=== PATIENT | male | born 1940 | race Caucasian/White ===

== ENCOUNTER 2023-10-30 08:19 | Emergency (ER) | payer MEDICARE, OTHER, SELFPAY ==
--- NOTE | ~2023-10-30 | CT_ITS ---
Non-contrast Head CT History: Status post fall Technique: Axial non-contrast imaging of the brain was performed. Dose reduction technique was used on this scan by utilizing automated exposure control and iterative reconstruction technique. The dose -length product (DLP) was 681.00 mGy-cm. Findings: There is no evidence of intracranial hemorrhage, mass lesion, or acute infarct. Focal coar se calcification noted in the right centrum semiovale. The ventricles and subarachnoid spaces are no rmal in size. The calvarium appears normal. The visualized paranasal sinuses and mastoid air cells are clear. There is soft tissue swelling/hematoma in the left frontal scalp. Impression: No acute intracranial abnormality seen. Soft tissue swelling/hematoma at the left frontal scalp. Reviewed, dictated and finalized at [facility]. Impression: No acute intracranial abnormality seen. Soft tissue swelling/hematoma at the left frontal scalp.
--- NOTE | ~2023-10-30 | CT_ITS ---
EXAMINATION: CT cervical spine wo con DATE: 10/30/2023 09:07 INDICATION: Fall with left-sided head injury TECHNIQUE: Computed tomography (CT) of the cervical spine was performed without intravenous contrast. Automated exposure control and iterative reconstruction technique were employed. The dose-length pro duct was 292.75 mGy-cm. COMPARISON: None FINDINGS: 7 degrees cervicothoracic dextrocurvature. Sagittal alignment is normal. Vertebral body heights are n ormal. No fracture. 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 Moderate disc height loss at C4-C5 and mild disc height loss at the remaining cervical and upper thoracic levels. Severe osteoarthritis at the atlantoaxial articulation. There is multileve l severe left-sided cervical and bilateral upper thoracic facet osteoarthritis with solid osseous fus ion across the left-sided facet and uncovertebral joints from C2 through C5. There is moderate right- sided cervical facet osteoarthritis with additional fusion across the left C2-C3 facet joint and deve loping fusion at the margins of the C3-C4 and C4-C5 facet joints. Posterior endplate osteophytes cont ributing to mild central canal stenosis at C5-C6 and C6-C7. There is multilevel mild neural foraminal stenosis throughout the cervical spine most prominent bilaterally also at C5-C6 and C6-C7. 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 A few small likely benign nodules in the right thyroid lobe the largest measur ing 1 cm. Mild emphysema the apices of the lungs. IMPRESSION: 1. Severe cervical spondylosis. No acute osseous abnormality. Reviewed, dictated and finalized at location [facility].
--- NOTE | ~2023-10-30 | XR_ITS ---
Left Hand Technique: PA, oblique, and lateral views were obtained. Clinical History: Status post fall Findings: There is a probable oblique, nondisplaced fracture the distal second metacarpal neck. No ot her fracture or dislocation seen. There is mild degenerative change at the first CMC joint and trisca phe joint. Soft tissues are unremarkable. Impression: Probable oblique, nondisplaced fracture of the distal second metacarpal neck. Degenerative change, as above. Reviewed, dictated and finalized at location . Impression: Probable oblique, nondisplaced fracture of the distal second metacarpal neck. Degenerative change, as above.
[2023-10-30 08:30] VITALS: BP 115/80; PULSE 83; RESP 20; TEMP 36.9; O2SAT 97
--- NOTE | 2023-10-30 08:34 | ED.FALL ---
HPI - Fall General Chief Complaint: Fall Stated Complaint: fall Time Seen by Provider: 10/30/23 08:30 History of Present Illness HPI Narrative: Patient was running labs this morning and thinks he overextended himself, he had started leaning forward on the last and over balanced falling on to his knees, left hand, face. No loss of consciousness, nausea vomiting. Only pain is really to his left hand. Is on blood thinners. Never had any chest pain, shortness of breath. Related Data Allergies Allergy/AdvReac Type Severity Reaction Status Date / Time naproxen Allergy Severe unknown Verified 10/30/23 08:36 Review of Systems Review of Systems: All systems reviewed & are unremarkable except as noted in HPI and below [facility] Family History Family History (Updated 07/07/17 @ 07:53 by DOCTOR UNKNOWN) Mother Patient's mother is , Onset Age: 85 Father Malignant neoplasm of prostate Family history of congestive heart failure, Onset Age: 82 Sibling Family history of malignant neoplasm of urinary bladder Other Family history of cardiovascular disease Social History Social History Smoking status: Former smoker Smoking end date: 02/24/1962 Alcohol intake: current Exam Narrative: EXAMINATION OF ORGAN SYSTEMS/BODY AREAS: Constitutional: Vital signs per nursing GENERAL:[No acute distress, non-toxic appearing.] HEAD: Slight abrasion to top of head EYES: EOMI, conjunctiva normal ENT: Hearing grossly intact LUNGS: Nonlabored breathing. HEART: [Regular rate and rhythm] ABD: [Soft], [nontender to palpation] EXT: Normal range of motion, some swelling and tenderness to left hand around the base of the 2nd digit and thumb SKIN: Slight bruising as above, small abrasion to top of head NEURO: [Alert and oriented x 3. No gross focal sensory or strength deficits.] PSYCH: Normal affect Course Vital Signs Vital signs: Vital Signs Temperature 98.4 F 10/30/23 08:30 Pulse Rate 83 10/30/23 08:30 Respiratory Rate 20 10/30/23 08:30 Blood Pressure 115/80 10/30/23 08:30 Pulse Oximetry 97 10/30/23 08:30 Oxygen Delivery Room Air 10/30/23 08:30 Temperature 97.1 F L 10/30/23 11:24 Pulse Rate 66 10/30/23 11:24 Respiratory Rate 20 09/05/24 11:24 Blood Pressure 118/79 10/30/23 11:24 Pulse Oximetry 98 10/30/23 11:24 Oxygen Delivery Room Air 10/30/23 08:30 Procedures Orthopedic Splinting/Casting Injury #1: Splinting/Casting Date: 10/30/23 Side: left Upper Extremity Injury Location: hand and finger Upper Extremity Immobilizer: finger (other) (Finger with radial gutter splint) Splint: customized in ED Pre-Procedure Neuro Vascular Exam: normal Post-Procedure Neuro Vascular Exam: normal MDM - Fall MDM Narrative Medical decision making narrative: Patient presents here after a fall when he overbalanced when he was running multiple laps, fell onto his left wrist and head, denied ever being lightheaded, no chest pain or shortness of breath, imaging obtained here just shows possible 2nd metacarpal neck fracture, this is splinted. Tetanus shot is up-to-date. Denies any other complaints, he is given strict return precautions and follow-up instructions to PCP Discharge Plan Discharge Clinical Impression: Fracture of hand, Fall, Traumatic hematoma of forehead Patient Disposition: Home, Self-Care Condition: Stable Instructions: Antibiotic Form, Hand Fracture (ED), Contusion in Adults (ED), Abrasion (ED) Additional Instructions: Please follow up with your doctor and the hand surgeon; you can always return for any further issues. Keep your hand in the splint but come back if you notice any worsening pain, any numbness/weakness/coldness to the fingers, or anything else concerning. Prescriptions: New acetaminophen [Tylenol Extra Strength] 500 mg tablet 1,000 mg PO Q6H PRN (Reason: pain) Qty:
[2023-10-30 09:35] VITALS: BP 127/83; PULSE 98; RESP 18; TEMP 36.6; O2SAT 99
[2023-10-30 11:24] VITALS: BP 118/79; PULSE 66; RESP 20; TEMP 36.2; O2SAT 98
== END 2023-10-30 11:26 | disposition home or self-care (01) ==
PROVIDERS: Emergency Provider Emergency Medicine
DX: S62.92XA Unspecified fracture of left hand, initial encounter for closed fracture (principal); S00.83XA Contusion of other part of head, initial encounter; W01.0XXA Fall on same level from slipping, tripping and stumbling without subsequent striking against object, initial encounter
CPT/HCPCS: 29125; 70450; 72125; 73130; 99284

== ENCOUNTER 2024-06-06 13:41 | Emergency (ER) | payer MEDICARE, SELFPAY ==
--- NOTE | ~2024-06-06 | CT_ITS ---
EXAMINATION: CT cervical spine wo con DATE: 06/06/2024 14:17 INDICATION: fall TECHNIQUE: Computed tomography (CT) of the cervical spine was performed without intravenous contrast. Automated exposure control and iterative reconstruction technique were employed. The dose-length pro duct was 462.25 mGy-cm. COMPARISON: 10/30/2023. FINDINGS: Vertebral Body Alignment: Intact. Craniocervical and atlantoaxial alignment: Moderate degenerative change. Alignment intact. Osseous structures/fracture: No evidence of a lytic or blastic process in the visualized spine. No e vidence of acute fracture. Multilevel facet fusions. Cervical soft tissues: The paraspinal soft tissues planes are maintained. Status post left thyroidect piedad. Subcentimeter right thyroid nodules. Emphysematous change. Degenerative changes: Degenerative changes, without severe neural foraminal or central canal narrowin g. IMPRESSION: No acute fracture or traumatic malalignment in the cervical spine. Reviewed, dictated and finalized at location K.
--- NOTE | ~2024-06-06 | CT_ITS ---
EXAMINATION: CT brain wo con DATE: 06/06/2024 14:17 INDICATION: fall . TECHNIQUE: Computed tomography (CT) of the head was performed without intravenous contrast. The mA wa s adjusted according to patient size. Iterative reconstruction technique was employed. The dose-lengt h product was 605.33 mGy-cm. COMPARISON: 10/30/2023. FINDINGS: No acute intracranial hemorrhage or extra-axial fluid collection. No hydrocephalus, mass, or herniation. No acute ischemic infarct. Unremarkable dural venous sinus attenuation. No acute osseous abnormality. Small focus of left frontal scalp swelling Trace left mastoid fluid, mild scattered paranasal sinus mucosal thickening. Moderate atrophy and chronic white matter change. Atherosclerotic intracranial calcification. Stable calcification in the right centrum semiovale white matter. IMPRESSION: No acute intracranial process. Reviewed, dictated and finalized at location K.
--- OUTSIDE RECORDS SUMMARY | 2024-06-06 13:44 | XMS_ITS | Referral Summary ---
Author Organization [facility] Address [address] [place] [address] Care Team Providers Care Programmer Name Role Phone Hallie Urias MD Primary Care Provider [phone] Franco Leigh MD Unavailable [phone] Encounters Date Type Department Care Team Description 04/07/2024 8:30 AM SCALP SPECIALIST - 04/07/2024 11:59 PM SCALP SPECIALIST Hospital Encounter [facility] [address] [place] [address] Calculus of ureter Discharge Disposition: Discharge to home or self care 03/18/2024 9:45 AM SCALP SPECIALIST - 03/18/2024 11:15 AM SCALP SPECIALIST Surgery [facility] Operating Room [address] [place] [address] Franco Leigh MD Right ureteroscopy, laser lithotripsy, stone extraction, right stent placement 03/18/2024 9:09 AM SCALP SPECIALIST Anesthesia Event [facility] [address] [place] [address] Alfred Jay MD 03/18/2024 8:00 AM SCALP SPECIALIST - 03/18/2024 11:52 AM SCALP SPECIALIST Hospital Encounter [facility] Operating Room [address] [place] [address] Franco Leigh MD Calculus of ureter (Primary Dx) Discharge Disposition: Discharge to home or self care from Last 3 Months Allergies Active Allergy Reactions Criticality Noted Date Comments Naproxen Flushing (skin) Low 08/25/2023 Medications tamsulosin (FLOMAX) 0.4 mg extended release capsuleIndicatio ns:benign prostatic hyperplasia with lower urinary tract sx Take 1 capsule (0.4 mg total) by mouth nightly 01/27/20 Active rivaroxaban (XARELTO) 20 mg tabletIndication s:atrial fibrillation Take 1 tablet (20 mg total) by mouth daily with breakfast Active multivitamin with minerals tabletIndication s:Vitamin Deficiency Prevention Take 1 tablet by mouth daily Active acidophilus-pect in, citrus 100 million cell-10 mg capsule Take 1 capsule by mouth daily Active omega-3 fatty acids-fish oil 300-1,000 mg capsuleIndicatio ns:hypertriglyce ridemia Take 1 capsule (1 g total) by mouth daily Active dilTIAZem CD/XR/XT (CARDIZEM CD,DILACOR XR) 120 mg 24 hr capsuleIndicatio ns:Ventricular Rate Control in Atrial Fibrillation Take 1 capsule (120 mg total) by mouth daily Active INVESTIGATIONAL MEDICATION - FOR HISTORICAL USE ONLY Take 1 tablet by mouth daily INV-CIRB #20-18 (PREVENTABLE) Investigational study Atorvastatin 40 vs placebo Active amino acids capsule Take by mouth Active Active Problems Problem Noted Date Diagnosed Date Calculus of ureter 03/03/2024 Renal abscess, left 11/08/2023 Atrial fibrillation with rapid ventricular respo nse 11/08/2023 Episode of dizziness 11/08/2023 Acute cystitis with hematuria 11/08/2023 Acute pyelitis 11/08/2023 Abnormal serum creatinine level 11/08/2023 Essential hypertension 11/08/2023 Dyslipidemia 11/08/2023 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 Hydronephrosis of left kidney 08/08/2023 Gross hematuria 08/08/2023 Rotator cuff strain, right, initial encounter Pyelonephritis 06/26/2023 UTI (urinary tract infection) 06/26/2023 Social History Tobacco Use Types Packs/Day Years Used Date Smoking Tobacco: Never Smokeless Tobacco: Never Tobacco Cessation:Counseling Given: Not Answered Alcohol Use Standard Drinks/Week Comments Never 0 (1 standard drink = 0.6 oz pur e alcohol) OASIS D0700: Social Isolation Answer Da te Recorded Frequency of experiencing loneliness or isolatio n Never 11/16/2023 AHC Utilities Answer Date Recorded In the past 12 months has th e electric, gas, oil, or water company threatened to shut off services in your home? No 11/10/2023 Social Connection and Isolat ion Panel [NHANES] Answer Date Recorded In a typical week, how many times do you talk on the phone with family, friends, or neighbors? More than three times a week 11/10/2023 How often do you get togethe r with friends or relatives? More than three times a week 11/10/2023 How often do you attend chur ch or jainism services? More than 4 times per year 11/10/2023 Do you belong to any clubs o r organizations such as yarsanism groups, unions, fraternal or athletic groups, or school groups? No 11/10/2023 How often do you attend meet ings of the clubs or organizations you belong to? Never 11/10/2023 Are you , , di vorced, , never , or living with a partner? 11/10/2023 AUDIT-C Answer Date Recorded Q1: How often do you have a drink containing alc ohol? Monthly or less 03/10/2024 Q2: How many drinks containi ng alcohol do you have on a typical day when you are drinking? 1 or 2 03/10/2024 Q3: How often do you have si x or more drinks on one occasion? Never 03/10/2024 Overall Financial Resource Strain (CARDIA) Answe r Date Recorded How hard is it for you to pa y for the very basics like food, housing, medical care, and heating? Not hard at all 11/10/2023 Hunger Vital Sign Answer Date Recorded Within the past 12 months, y ou worried that your food would run out before you got the money to buy more. Never true 11/10/19 24 Within the past 12 months, t he food you bought just didn't last and you didn't have money to get more. Never true 11/10/2023 PRAPARE - Transportation Answer Date Re corded In the past 12 months, has l ack of transportation kept you from medical appointments or from getting medications? No 10/25 In the past 12 months, has l ack of transportation kept you from meetings, work, or from getting things needed for daily living? No 11/10/2023 Housing Stability Vital Sign Answer Curt e Recorded In the last 12 months, was t here a time when you were not able to pay the mortgage or rent on time? No 06/26/2023 In the last 12 months, how many places have you lived? 1 06/26/2023 In the last 12 months, was t here a time when you did not have a steady place to sleep or slept in a custodial (including now)? No 06/26/2023 Housing Stability Vital Sign Answer Curt e Recorded In the last 12 months, was t here a time when you were not able to pay the mortgage or rent on time? No 11/10/2023 In the past 12 months, how m any times have you moved where you were living? 0 11/10/2023 At any time in the past 12 m [facility], were you homeless or living in a custodial (including now)? No 11/10/2023 Personal Safety Answer Date Recorded Have you ever been in or are you currently in a harmful physical or emotional relationship or is someone making you feel afraid or unsafe? Denies 03/18/2024 Sex and Gender Information Value Date Recorded Sex Assigned at Not on file Legal Sex Male 9:10 PM CDT Gender Identity Not on file Sexual Orientation Not on file Last Filed Vital Signs Vital Sign Reading Time Taken Comments Blood Pressure 127/87 03/18/2024 11:38 AM SCALP SPECIALIST Pulse 93 03/18/2024 11:38 AM SCALP SPECIALIST Temperature 36.2 C (97.1 F) 03/18/2024 11:38 AM SCALP SPECIALIST Respiratory Rate 18 03/18/2024 11:38 AM SCALP SPECIALIST Oxygen Saturation 93% 03/18/2024 11:38 AM SCALP SPECIALIST Inhaled Oxygen Concentration - - Weight 82.8 kg (182 lb 8.7 oz) 03/18/2024 8:17 A M SCALP SPECIALIST Height 177.8 cm (5' 10 ) 03/18/2024 8:17 AM SCALP SPECIALIST Body Mass Index 26.19 03/18/2024 8:17 AM SCALP SPECIALIST Plan of Treatment Not on file Medical Devices Implanted Type Area Director Independent Device Identifier Shelf Expiration Date Model / Serial / Lot Is That Odd Scientific Debbie Contour 6fr 26cm Large Inner Lumen Low Profile Bladder Iban Taper Latex Free 180-223 - [id number] Implanted:Qty: 1 on 03/18/2024 by Franco Leigh MD at [facility] 11/05/2026 [id number] / / [id number] Procedures Procedure Name Priority Date/Time Associated Diagnosis Comments XR KUB Schedule Routine, Read Routine (OP Routine) 04/07/2024 8:49 AM SCALP SPECIALIST Calculus of ureter SURGICAL PATHOLOGY Routine 03/18/2024 11 :49 AM SCALP SPECIALIST Calculus of ureter FL FLUOROSCOPY < 1 HOUR IP Routine 03/18/2024 11:00 AM SCALP SPECIALIST Calculus of ureter XR ABDOMEN AP 1 VIEW IP Routine 03/18/2024 11:00 AM SCALP SPECIALIST Calculus of ureter STONE ANALYSIS Routine 03/18/2024 9:42 AM SCALP SPECIALIST WY AN ELECTIVE SUPRAGLOTTIC AIRWAY Routine 03/18/2024 9:31 AM SCALP SPECIALIST URETEROSCOPY 03/18/2024 9:09 AM SCALP SPECIALIST Calculus of ureter from Last 3 Months Results * XR Kub (04/07/2024 8:49 AM SCALP SPECIALIST) Anatomical Region Laterality Modality Body, Abdomen N/A Computed Radiogr aphy 04/09/2024 9:15 AM SCALP SPECIALIST Narrative 04/09/2024 9:19 AM SCALP SPECIALIST EXAM DESCRIPTION: XR KUB REASON FOR STUDY: RIGHT URETERAL STONE Right side kidney stone No pain TECHNIQUE: 1 radiographic view of the abdomen. COMPARISON: 03/18/2024 FINDINGS: BOWEL: Nonobstructive gas pattern. SOFT TISSUES: No abnormal calcifications. LINES/TUBES: Right-sided double-J ureteral stent has been removed since the previous study. BONES: No acute osseous abnormality. IMPRESSION: Interval removal of right-sided double-J ureteral stent. THIS IS AN ELECTRONICALLY VERIFIED FINAL REPORT 04/09/2024 9:19 AM - Electronically signed by Carmen Quintanilla M.D. AB: Report ID: [id number] Reading Location: [id number] Procedure Note Carmen Quintanilla MD - 04/09/2024 EXAM DESCRIPTION: XR KUB REASON FOR STUDY: RIGHT URETERAL STONE Right side kidney stone No pain TECHNIQUE: 1 radiographic view of the abdomen. COMPARISON: 03/18/2024 FINDINGS: BOWEL: Nonobstructive gas pattern. SOFT TISSUES: No abnormal calcifications. LINES/TUBES: Right-sided double-J ureteral stent has been removed sincethe previous study. BONES: No acute osseous abnormality. IMPRESSION: Interval removal of right-sided double-J ureteral stent. THIS IS AN ELECTRONICALLY VERIFIED FINAL REPORT 04/09/2024 9:19 AM - Electronically signed by Carmen Quintanilla M.D. AB: Report ID: [id number] Reading Location: [id number] Franco Leigh MD IMG XR PROCEDURES Fi nal Result * Surgical pathology (03/18/2024 11:49 AM SCALP SPECIALIST) Tissue specimen (specimen) (Calculus/calculi /stone, gross and Chemical Analysis) 03/18/2024 9:42 AM SCALP SPECIALIST Narrative PATHOLOGY [facility] ([facility]) - 03/19/2024 11:09 AM SCALP SPECIALIST EPIC results best viewed via link to PDF [facility] Department of Pathology [address] [place], [place] [id number] Note to Patients: This report may contain a detailed description of human tissue sent by a health care provider to the laboratory for pathologic evaluation. The content of this report is essential for diagnosis and may provide important critical findings. This information may be unfamiliar to patients to review without a medical professional present. It is advised that the patient review this report in the presence of a health care provider who can answer questions and explain the details. Final Report Patient Name: APARNA TOMPKINS Address: [address] [place] [address] [address] , [place] [address] Gender: M : 1940 (Age: 84) Service: Surgery Location: [facility] Hospital #: [id number] Patient Type: [facility] Taken: 03/18/2024 Received: 03/18/2024 Accessioned: 03/18/2024 Reported: 03/19/2024 Physician(s):Franco Leigh M.D. Diagnosis: Right ureteral stone, removal (gross only): - Consistent with ureteral stone. - Pending [facility] chemical analysis. Akil Pearson M.D. Report Electronically Reviewed and Signed Out By Akil Pearson M.D. 03/19/2024 11:09:35 Specimen(s) Received: A: Right ureteral stone Clinical History: Calculus of ureter. Right ureteroscopy, laser lithotripsy, stone extraction, right stent placement. Gross Description: The specimen is submitted in a single container labeled MARLIN TOMPKINS and right ureteral stone . It is 5 fragments of chowdhury tissue measuring 2 mm. The specimen is entirely submitted to [facility] for chemical analysis. When the [facility] report has been finalized, it will be available in the laboratory section of [facility]. If [facility] is not available, please call the Department of Pathology at [facility] ([phone]) to obtain a copy of the report. [facility] R.N[facility] P.A./Elvira Ramírez M.D. REPORT IMAGES AND SCANNED DOCUMENTS, IF INCLUDED, ONLY VIEWABLE IN PDF VERSION OF REPORT The performance characteristics of some immunohistochemical stains, fluorescence in-situ hybridization tests and immunophenotyping by flow cytometry cited in this report (if any) were determined by the Surgical Pathology Department at [facility] as part of an ongoing senior software quality engineer program and in compliance with federally mandated regulations drawn from the Clinical Laboratory Improvement Act of 1988 (CLIA '88). Some of these tests rely on the use of analyte specific reagents and are subject to specific labeling requirements by the US Food and Drug Administration. Such diagnostic tests may only be performed in a facility that is certified by the Department of Health and Human Services as a high complexity laboratory under CLIA '88. The FDA has determined that such clearance or approval is not necessary. This test is used for clinical purposes. It should not be regarded as investigational or for research. Nevertheless, federal rules concerning the medical use of analyte specific reagents require that the following disclaimer be attached to the report: This test was developed and its performance characteristics determined by the Surgical Pathology Department [facility]. It has not been cleared or approved by the U. S. Food and Drug Administration. Note for decalcified specimens: This assay has not been validated on decalcified tissues. Results should be interpreted with caution given the possibility of false negativity on decalcified specimens Franco Leigh MD LAB PATHOLOGY ORDERA BLES Final Result Performing Organization Address [facility] Co de Phone Number PATHOLOGY [facility] ([facility]) [address] [place] [address] * FL Fluoroscopy < 1 Hour (03/18/2024 11:00 AM SCALP SPECIALIST) Narrative [facility]ACS[facility] - 03/18/2024 11:46 AM SCALP SPECIALIST The images from this study are not interpreted by Radiology. Please refer to the physician's procedure / OR operative note. Franco Leigh MD IMG FLUOROSCOPY PROC EDURES Final Result Performing Organization Address [facility] de Phone Number [facility] * XR Abdomen 1 View AP (03/18/2024 11:00 AM SCALP SPECIALIST) Anatomical Region Laterality Modality Body, Abdomen N/A Radio Fluoroscop y 03/18/2024 3:55 PM SCALP SPECIALIST Narrative 03/18/2024 3:57 PM SCALP SPECIALIST EXAM DESCRIPTION: XR ABDOMEN AP 1 VIEW REASON FOR STUDY: kidney stone Right stent placement Fluoro time: .2 min Mgy: 3.6 DAP: 202.18 TECHNIQUE: Single radiographic view of the abdomen. COMPARISON: CT abdomen 02/19/2024 FINDINGS: 2 limited fluoroscopic images of the abdomen were submitted demonstrating right nephroureteral stent in appropriate position, terminating distally within the pelvis in the expected position of the urinary bladder. . No acute findings IMPRESSION: Right nephroureteral stent in appropriate position. THIS IS AN ELECTRONICALLY VERIFIED FINAL REPORT 03/18/2024 3:57 PM - Electronically signed by Yolanda Benitez M.D. FT: FT Report ID: [id number] Reading Location: [id number] Procedure Note Yolanda Conklin MD - 03/18/2024 EXAM DESCRIPTION: XR ABDOMEN AP 1 VIEW REASON FOR STUDY: kidney stone Right stent placement Fluoro time: .2 min Mgy: 3.6 DAP: 202.18 TECHNIQUE: Single radiographic view of the abdomen. COMPARISON: CT abdomen 02/19/2024 FINDINGS: 2 limited fluoroscopic images of the abdomen were submitted demonstrating right nephroureteral stent in appropriate position, terminating distally within the pelvis in the expected position of the urinary bladder. . No acute findings IMPRESSION: Right nephroureteral stent in appropriate position. THIS IS AN ELECTRONICALLY VERIFIED FINAL REPORT 03/18/2024 3:57 PM - Electronically signed by Yolanda Benitez M.D. FT: FT Report ID: [id number] Reading Location: [id number] Franco Leigh MD IMG XR PROCEDURES Fi nal Result * Stone analysis (03/18/2024 9:42 AM SCALP SPECIALIST) Pathologist [facility] Stone analysis Not Reported [facility] Comment:Testing performed by : [facility], [address] [place] [address]., [address] Source, Kid Stone Right Ureter [facility] (VIVIAN) Comment:Testing performed by : [facility], [address] [place] [address], [place]., [address] Interp, Kid stone analysis See Footnote [facility]ENNY GIRARD (VIVIAN) Comment: RESULT: 100% Calcium oxalate monohydrate. Testing performed by: [address] [address] COMMENT See Footnote KENNY GIRARD (VIVIAN) Comment: For stones containing calcium oxalate, calcium phosphate, and/or uric acid, a 24 hr urinary supersaturation test may help detect underlying risk factors for this type of stone formation and provide guidance for a stone prevention strategy. ADDITIONAL INFORMATION This test was developed and its performance characteristics determined by [facility] in a manner consistent with CLIA requirements. This test has not been cleared or approved by the U.S. Food and Drug Administration. Test Performed by: [facility] - [facility] [address] [place] [address] Chair Trimmer: Norman Bautista Ph.D.; CLIA# [id number] Testing performed by: [facility], [address] [place] [address], [address] Stone 03/18/2024 9:42 AM SCALP SPECIALIST 03/22/2024 2:17 PM SCALP SPECIALIST Narrative [facility] ([facility]) - 03/25/2024 11:09 PM SCALP SPECIALIST right ureteral stone Franco Leigh MD LAB URINE ORDERABLES Final Result Performing Organization Address City/State/[facility] Co de Phone Number [facility] (ECLECTIC) [facility] Department [place] [address] [facility] * [place] AN ELECTIVE SUPRAGLOTTIC AIRWAY (03/18/2024 9:31 AM SCALP SPECIALIST) Narrative Samantha Hutson CRNA - 03/18/2024 9:31 AM SCALP SPECIALIST Samantha Hutson CRNA 03/18/2024 9:32 AM Airway Patient location: OR Urgency: elective Indications for airway management: anesthesia Difficult airway: no Staff: Placed by: FORENSIC ENGINEER: Samantha Hutson CRNA Emergent airway documentation: Risks and benefits discussed: yes Consent obtained: yes Consent given by: patient Airway prep: Preoxygenated: yes Patient position: sniffing Mask difficulty assessment: 0 - not attempted Spontaneous ventilation during airway: absent Sedation level during airway: GA Final airway details: Final airway type: supraglottic airway Final supraglottic airway: unique SGA size: 5 Number of attempts: 1 Alfred Jay MD ANESTHESIA ORDERABLES Sugar mcmahon Result from Last 3 Months Insurance [place] [employer] [place] [employer]IC[facility] Address: [facility] [address] [place] [address] [place] [employer] [facility] MEDICARE AD[facility]ANT[facility] MEDICARE Address: [facility] [address] [place] [address] Advance Directives For more information, please contact: [phone] Documents on File Type Date Recorded Patient Paradichlorobenzene Machine Operator Expl anation ADVANCE DIRECTIVE 11/17/2023 6:11 PM POWER OF FRAME ALIGNER-MEDICAL * LIMITED - No CPR (Latest Code Status on File) Date Activated Date Inactivated Comments 11/08/2023 6:18 PM 11/14/2023 9:56 PM * Full Code Date Activated Date Inactivated Comments 06/26/2023 3:13 AM 06/29/2023 4:04 PM Care Teams Programmer Relationship Specialty Start Date End Date Hallie Urias MD [address] [place] [address] PCP - General Internal Medicine 06/27/23 [place] [address] [place] [address] Consulting Physician Urology 06/29/23
--- OUTSIDE RECORDS SUMMARY | 2024-06-06 13:44 | XMS_ITS | Data Portability ---
Author Organization [place] - [facility] OFFICE Address [address] [place] [address] Care Team Providers Care Beef [employer]attle [employer] Manager Name Role Phone NILESH LENNON Primary Care Provider Unavail able NILESH LENNON Referring Provider JUANITO Rosas Primary Care Provider [phone] Assessment No assessment recorded. Plan of Treatment Reminders Order Date Submit Date Provider Last Modified By Organization Details Last Modified Time Details Appointments None recorded. Lab None recorded. Referral None recorded. Procedures None recorded. Surgeries None recorded. Imaging electrocar diogram 2017 018 angela Not available 8 14:07:32 Medication Orders diltiazem ER 120 mg capsule,24 hr,extende d release 2018 019 [facility][id number], [address], [place], [id number], 9 13:30:32 Xarelto 20 mg tablet 2018 019 [facility] #[id number], [address], [place], [id number], 9 13:30:31 diltiazem ER 120 mg capsule,24 hr,extende d release 2017 018 [facility] #[id number], [address], [place], [id number], 8 14:07:36 Toprol XL 25 mg tablet,ext ended release 2017 018 [facility] #[id number], [address], [place], [id number], 9 13:25:54 Xarelto 20 mg tablet [address] [facility] #[id number], [address], [place], [id number], 8 14:07:36 Patient TargetsNo targets recorded. Patient Instructions Encounter Date Encounter Id Patient Instructions Last Modified By Organization Details Last Modified Time 02/06/2018 [id number] elevated blood [facility]: [facility] Not available 02/06/2018 14:07:32 04/10/2018 [id number] elevated blood pressure: [facility] Not available 04/10/2018 13:30:27 Reason for Referral None Reported. Results Created Date Observation Date Name Description Value Unit Range Abnormal Flag Note LastModifiedBy Organization Detail LastModifiedTime 02/07/20 18 02/06/2018 sierra estrada am Result EKG (02/06): NSR, I degree AV block, NSST change s Not Available Chandrakant Rodriguez MD [address] [place], [place], [address], 02/06/2018 14:03:10 02/10/20 18 01/27/2018 XR, chest No observ ation record ed. [email or web address] Not Available 02/10 12:41:01 02/10/20 18 01/27/2018 XR, chest No observ ation record ed. [email or web address] Not Available 02/10 12:41:44 02/11/20 18 01/28/2018 , echo ardio gram No observ ation record ed. [email or web address] Not Available 2017 10:18:01 02/11/20 18 02/06/2018 sierra estrada am No observ ation record ed. [email or web address] Not Available 02/11 15:38:37 05/13/19 19 05/04/2018 cheyanne r monit or No observ ation record ed. [email or web address] Not Available 05/12 11:49:11 04/19/20 19 08/05/2014 santos can cardi olite stres s test (PROC ) No observ ation record ed. Not Available 2018 10:01:59 Result Notes None recorded. Problems Name Problem SNOMED Code Status Onset Date Resolution Date Notes Provider Name and Address Organization Details Recorded Time Snoring 70475834 Active 2017 Dayanara Perry [facility], [place] - [facility] 8 12:47:37 Chest pain 84439211 Active 2017 Dayanara [place], [place] - [facility] 8 12:47:46 Bilateral hearing loss 45900415 Active 2017 [facility], [place] - [facility] 8 12:47:56 Tinnitus of left ear 085691730598 6 Active 2017 Dayanara [place] [facility], [place] - [facility] 8 12:48:09 Hypertens ronit disorder 22862474 Active 2017 [facility], [place] - [facility] 8 13:29:33 Benign prostatic hyperplas ia 950319019 Active 2017 [facility], [place] - [facility] 8 13:29:46 Anemia 017602413 Active 2017 [facility] [place], [place] - [facility] 8 13:30:02 Atrial fibrillat ion 89055771 Completed 201702/06/2018 [facility], [place] - [facility] 8 14:03:20 Paroxysma l atrial fibrillat ion 482777616 [facility] [place] [facility] 8 13:33:45 Pulmonary emphysema 75599703 Active 2017 [facility], [place] - [facility] 8 13:39:03 Problem Notes None recorded. Procedures Surgical History Date Name Laterality Status Provider Name and Address Organization Details Recorded Time 1 thyroidectomy completed Dayanara Perry [facility] 02/06/2018 12:46:17 tonsillectomy completed Dayanara Perry [facility] 02/06/2018 12:46:25 Imaging Results Imaging Date Name Status LastModified by Organization Details LastModified Time 01/27/2018 XR, chest completed [email or web address] Information no t available 02/10/2018 12:41:01 01/27/2018 XR, chest completed [email or web address] Information no t available 02/10/2018 12:41:44 01/28/2018 US, echocardiogram completed [email or web address] Inform ation not available 02/10/2018 10:18:01 02/06/2018 electrocardiogram completed [email or web address] Informa tion not available 02/11/2018 15:38:37 05/04/2018 holter monitor completed [email or web address] Informatio n not available 05/12/2018 11:49:11 08/05/2014 lexiscan cardiolite stress test (PROC) completed [email or web address] Information not available 06/16/2018 10:01:59 Procedure Notes None recorded. Medical Equipment None Reported. Allergies Allergen ID Allergen Name Allergen Category Reaction Reaction Severity Criticality Documentation Date Start Date Code Code System Note Provider Name and Address Organization Details Recorded Time 7239 Aleve medicatio n Not available Not available Not available 02/06/2018 24684 1 RxNorm Dayanara Perry [facility] 8 12:58:50 Medications Name Sig Start Date Stop Date Status Note LastModified by Organization Details LastModified Time amiodarone 200 mg tablet bid 02/06 completed Not Available Not Available Not Available peg-electrol yte solution 420 gram oral solution 02/06 completed Not Available Not Available Not Available blood pressure monitor kit active Not Available Not Available Not Available amiodarone 400 mg tablet Take 1 tablet twice a day by oral route. 02/06 completed Not Available Not Available Not Available tamsulosin 0.4 mg capsule qd active Not Available Not Available Not Available diltiazem ER 120 mg capsule,24 hr,extended release qd 2018 active Not Available Not Available Not Avai lable lisinopril 10 mg tablet 02/06 completed Not Available Not Available Not Available losartan 25 mg tablet Take 0.5 tablets every day by oral route. active Not Available Not Available No t Available metoprolol succinate ER 25 mg tablet,exten ded release 24 hr Take 0.5 tablets twice a day by oral route. 04/10 completed Not Available Not Available Not Available metoprolol tartrate 25 mg tablet 0.5 tab bid 02/06 completed Not Available Not Available Not Available DILT-XR 120 mg capsule, extended release active Not Available Not Available Not Available ferrous sulfate bid 32mg 04/10 completed Not Available Not Available Not Available Vitamin D3 qd active Not Available Not Av ailable Not Available Probiotic qd active Not Available Not [place] ilable Not Available Xarelto 20 mg tablet qd active Not Available Not Available No t Available Fish Oil 1,000 mg (120 mg-180 mg) capsule Take 1 capsule by oral route. active Not Available Not Available No t Available Fluad 65yr up(PF)45 mcg(15 mcgx3)/0.5 mL intramuscula r syringe prn 04/10 completed Not Available Not Available Not Available Vitals Date Recorded Body height Body mass index (BMI) Body weight Heart rate Oxygen saturation Oxygen saturation in Arterial blood by Pulse oximetry Systolic blood pressure Diastolic blood pressure Provider Name and Address Organization Details Last Updated DateTime 8 177.8 cm 27.5 kg/m2 43025.7 4 g 66 /min 100 % 100 % 142 mm[Hg] 84 mm[Hg] [facility] 8 12:58:40 Date Recorded Body height Systolic blood pressure Diastolic blood pressure Provider Name and Address Organization Details Last Updated DateTime 04/10/2018 177.8 cm 130 mm[Hg] 84 mm[Hg] [facility] 04/10/2018 13:01:02 Date Recorded Body mass index (BMI) Body weight Heart rate Oxygen saturation Oxygen saturation in Arterial blood by Pulse oximetry Provider Name and Address Organization Details Last Updated DateTime 04/10/2018 26.4 kg/m2 88353 g 71 /min 98 % 98 % Henok Self [facility] 9 12:48:51 Social History Question Answer Notes LastModified by Organizat ion Details LastModified Time Tobacco Smoking Status Former Smoker Quit 1963 Not Available [email or web address] 12/28/2019 03:30:41 Do You Have An Advance Directive? No [id number] Information not available 12/28/2019 What Is Your Level Of Alcohol Consumption? Occasional [id number] Information not available 12/28/2019 What Is Your Level Of Caffeine Consumption? None [id number] Information not available 12/28/2019 How Much Tobacco Do You Chew? None [id number] Information not available 12/28/2019 What Type Of Diet Are You Following? REGULAR [id number] Information not available 12/28/2019 Which Illicit Or Recreational Drugs Have You Used? No [id number] Information not available 12/28/2019 What Is Your Occupation? Retired [id number] Information not available 12/28/2019 Live Alone Or With Others? With Others [email or web address] Information not available 02/06/2018 Marital Status Informatio n not available 02/06/2018 What Was The Date Of Your Most Recent Tobacco Screening? 02/06/2018 [id number] Information not available 12/28/2019 How Many Children Do You Have? 3 [id number] Information not available 12/28/2019 How Much Tobacco Do You Smoke? No [id number] Information not available 12/28/2019 General Stress Level Medium Information not available 02/06/2018 How Many Years Have You Smoked Tobacco? 15 [id number] Information not available 12/28/2019 Sex: Unknown Functional Status Question Answer Note LastModified by Organizat ion Details LastModified Time What is your exercise level? Occasional [id number] Information not available 12/28/2019 Mental Status None recorded. Family History Nothing Reported. Medical History Condition Response Anemia Y Hypertension Y Past Encounters Encounter ID Performer Location Encounter Start Date Encounter Closed Date Diagnosis/Indication Diagnosis SNOMED-CT Code Diagnosis ICD10 Code Diagnosis Note [id number] Jourdan Terry Office [address] [place] [address] 02/06/2018 11:45:00 02/06/2018 14:02:15 Paroxysmal atrial fibrillation 959041122 I48.0 Discussed diagnosis of {{paroxysm al atrial fibrillati on# atrial fibrillati on atrial flutter}}, including pathophysi ology and prognosis. Discussed importance of controllin g blood pressure, exercising regularly, and minimizing alcohol, caffeine, and decongesta nts. Advised patient to seek medical attention for palpitatio ns, chest pain, dizziness or syncope, shortness of breath, or any other new or concerning symptoms.{ {No need for anticoagul ation at this time. The patient needs anticoagul ation.*}} Patient is to be on {{ warfari n with INR monitored for appropriat e dosing adjustment s, Xarelto, * Eliquis, Savaysa, Pradaxa, }} and for rate control they will need {{no other medication , beta-bloc ker, beta-bloc ker + antiarrhyt hmic, * calcium channel myles, calcium channel myles + antiarrhyt hmic, antiarrhy thmic, }}{{ digox in, }}and patient was advised to take medication as prescribed . Fall precaution s reviewed. Stroke and bleeding risks reviewed with patient. Holterwill stop Amiodarone . Hypertensive disorder 38 893076 I10 Patient's blood pressure is {{well-con trolled* n ot well-contr olled}} on present medical therapy. Patient is {{tolerati ng, without difficulty ,* having side effects with}} the current medication s. I have {{not made* made the following} } changes to the current regimen. {{ Patient is advised to maintain a blood pressure diary.*}} Cont low Na diet. BP machine [id number] Jourdan Terry Office [address] [place] [address] 04/10/2018 12:35:00 04/10/2018 13:25:58 Paroxysmal atrial fibrillation 397666825 I48.0 Discussed diagnosis of {{paroxysm al atrial fibrillati on# atrial fibrillati on atrial flutter}}, including pathophysi ology and prognosis. Discussed importance of controllin g blood pressure, exercising regularly, and minimizing alcohol, caffeine, and decongesta nts. Advised patient to seek medical attention for palpitatio ns, chest pain, dizziness or syncope, shortness of breath, or any other new or concerning symptoms.{ {No need for anticoagul ation at this time. The patient needs anticoagul ation.*}} Patient is to be on {{ warfari n with INR monitored for appropriat e dosing adjustment s, Xarelto, * Eliquis, Savaysa, Pradaxa, }} and for rate control they will need {{no other medication , beta-bloc ker, beta-bloc ker + antiarrhyt hmic, calcium channel myles, * calcium channel myles + antiarrhyt hmic, antiarrhy thmic, }}{{ digox in, }}and patient was advised to take medication as prescribed . Fall precaution s reviewed. Stroke and bleeding risks reviewed with patient.. Zio to check for arrhythmia Hypertensive disorder 38 581169 I10 Patient's blood pressure is {{well-con trolled* n ot well-contr olled}} on present medical therapy. Patient is {{tolerati ng, without difficulty ,* having side effects with}} the current medication s. I have {{not made made the following* }} changes to the current regimen stop Toprol , start Cozaar. {{ Patient is advised to maintain a blood pressure diary.*}} Cont low Na diet. BP machine Health Concerns Section Related Observation LastModified by Organization Detai ls LastModified Time None Recorded Concern Status LastModified by Organization Details LastModified Time None Recorded Advance Directives Directive N: Payers Encounter Date Sequence Insurance Name Policy Number Policy Clay Covered Member ID Clay Member ID Guarantor Name 02/06/2018 1 [facility] (MEDICARE REPLACEMENT/A DVANTAGE - HMO) [id number] Aparna Tompkins [id number] Aparna Tompkins 04/10/2018 1 [facility] (MEDICARE REPLACEMENT/A DVANTAGE - HMO) [id number] Aparna Tompkins [id number] Aparna Tompkins Notes Date Note Type Note Provider Name and Address Organization Details Recorded Time 02/06/2018 text/html 77 year-old WM w ith history of paroxysmal AFIB, BPH, HTN, emphysema who presents for scheduled fu after dc from hospital. Pt presented on 01/26/2018 to [facility] where he was diagnosed with AFIB. He had some chest discomfort at that time and his BP was not optimally controlled.Before dc he converted to NSR. Since dc he generally feels fine. States that has some episodes of dizziness after he takes Amiodarone especially in PM. No BP machine Pt had half of thyroid removed 2000. no supplementation. {{No known history of coronary artery disease.* History of coronary artery disease reported.}} {{No history of previous myocardial infarction.* History of previous myocardial infarction reported.}} {{No history of heart failure.* History of heart failure reported.}} {{No known valvular heart disease.* History of valvular heart disease reported.}} {{No known arrhythmia. History of arrhythmia reported.*}} {{Patient reports feeling well overall.* Patient reports not feeling well sometimes.}} {{Patient is active, but is not exercising regularly.* Patient is active, exercising regularly. Patient is not very active, and is not exercising.}} {{No chest pain.* Chest pain reported. Exertional chest pain reported. Non-exertio nal chest pain reported. Chest pain reported which is only sometimes associated with activity.}} {{No arm pain.* Arm pain reported.}} {{No neck pain.* Neck pain reported.}} {{No nausea and vomiting.* Nausea and vomiting reported.}} {{No diaphoresis.* Diaphor esis reported.}} {{No shortness of breath at rest.* Shortness of breath at rest reported.}} {{No dyspnea on exertion.* Dyspnea on exertion reported.}} {{No fatigue.* Fatigue reported.}}{{No orthopnea.* Orthopnea reported.}} {{No PND.* PND reported.}} {{No leg swelling.* Leg swelling reported.}} {{No palpitation.* Palpita tion reported.}} {{No dizziness.* Dizziness reported.}} {{No syncope .* Syncope reported.}} {{No pre-syncope.* Pre-syn cope reported.}} {{No claudication.* Claudi cation reported.}} {{No major bleeding events.* Major bleeding event reported.}} {{No side effects from medications.* Side effects from medications reported.}} {{Complete ROS negative except as stated in the HPI. Complete ROS negative except as stated in the HPI and ROS.*}} Results from this visit, or from the past:EKG (02/06/18): NSR, I degree AV block, NSST changesCHEM (01/27/2018): K 4.4, CR 0.8, CA 8.8LIPIDS (01/27/18): TC 98, TG 34, LDL 42, HDL EKG: Sinus bradycardia (56 bpm). First degree A-V block. NSST changesecho (01/28/2018): Normal LV systolic function. Mild LVH. Trivial TR. PASP 45 mmHg. Mild LAE. Jourdan Mallory [place], [place] - [facility] 02/06/2018 14:08:32 04/10/2018 text/html 77 year-old WM w ith history of paroxysmal AFIB, BPH, HTN, emphysema who presents for scheduled fu. he was last time in our office about 2 months ago. Pt presented on 01/26/2018 to [facility] where he was diagnosed with AFIB. He had some chest discomfort at that time and his BP was not optimally controlled. Before dc he converted to NSR., since then remains asymptomatic. He states that this was first time that he was admitted to hospital overnight. Since dc he generally feels fine. States that has some episodes of dizziness after he takes Amiodarone especially in PM. This medication was dc at last appointment and pts symptoms resolved. He is wondering if anticoagulation could be stopped since he is blood donor. Pt had half of thyroid removed 2000. no supplementation. {{No known history of coronary artery disease.* History of coronary artery disease reported.}} {{No history of previous myocardial infarction.* History of previous myocardial infarction reported.}} {{No history of heart failure.* History of heart failure reported.}} {{No known valvular heart disease.* History of valvular heart disease reported.}} {{No known arrhythmia. History of arrhythmia reported.*}} {{Patient reports feeling well overall.* Patient reports not feeling well sometimes.}} {{Patient is active, but is not exercising regularly.* Patient is active, exercising regularly. Patient is not very active, and is not exercising.}} {{No chest pain.* Chest pain reported. Exertional chest pain reported. Non-exertio nal chest pain reported. Chest pain reported which is only sometimes associated with activity.}} {{No arm pain.* Arm pain reported.}} {{No neck pain.* Neck pain reported.}} {{No nausea and vomiting.* Nausea and vomiting reported.}} {{No diaphoresis.* Diaphor esis reported.}} {{No shortness of breath at rest.* Shortness of breath at rest reported.}} {{No dyspnea on exertion.* Dyspnea on exertion reported.}} {{No fatigue.* Fatigue reported.}}{{No orthopnea.* Orthopnea reported.}} {{No PND.* PND reported.}} {{No leg swelling.* Leg swelling reported.}} {{No palpitation.* Palpita tion reported.}} {{No dizziness.* Dizziness reported.}} {{No syncope .* Syncope reported.}} {{No pre-syncope.* Pre-syn cope reported.}} {{No claudication.* Claudi cation reported.}} {{No major bleeding events.* Major bleeding event reported.}} {{No side effects from medications.* Side effects from medications reported.}} {{Complete ROS negative except as stated in the HPI. Complete ROS negative except as stated in the HPI and ROS.*}} Results from this visit, or from the past:EKG (02/06/18): NSR, I degree AV block, NSST changesCHEM (01/27/2018): K 4.4, CR 0.8, CA 8.8LIPIDS (01/27/18): TC 98, TG 34, LDL 42, HDL EKG: Sinus bradycardia (56 bpm). First degree A-V block. NSST changesecho (01/28/2018): Normal LV systolic function. Mild LVH. Trivial TR. PASP 45 mmHg. Mild LAE. Jourdan lynch [place] - [facility] 04/10/2018 13:31:19
--- OUTSIDE RECORDS SUMMARY | 2024-06-06 13:44 | XMS_ITS | Clinical Summary ---
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 Name Role Phone Hallie Urias MD Primary Care Provider [phone] Franco Leigh MD Unavailable [phone] Allergies Active Allergy Reactions Criticality Noted Date Comments Naproxen Flushing (skin) Low 08/25/2023 Medications tamsulosin (FLOMAX) 0.4 mg extended release capsuleIndicatio ns:benign prostatic hyperplasia with lower urinary tract sx Take 1 capsule (0.4 mg total) by mouth nightly 01/27/20 19 Active rivaroxaban (XARELTO) 20 mg tabletIndication s:atrial [...] Pyelonephritis 06/26/2023 UTI (urinary tract infection) 06/26/2023 Encounters Date Type Department Care Team Description 04/07/2024 8:30 AM SACK FILLER - 04/07/2024 11:59 PM SACK FILLER Hospital Encounter [facility] [address] [place] [address] Calculus of ureter Discharge Disposition: Discharge to home or self care 03/18/2024 9:45 AM SACK FILLER - 03/18/2024 11:15 AM SACK FILLER Surgery [facility] [address] [place] [address] Franco Leigh MD Right ureteroscopy, laser lithotripsy, stone extraction, right stent placement 03/18/2024 9:09 AM SACK FILLER Anesthesia Event [facility] [address] [place] [address] Alfred Jay MD 03/18/2024 8:00 AM SACK FILLER - 03/18/2024 11:52 AM SACK FILLER Hospital Encounter [facility] [address] [place] [address] Franco Leigh MD Calculus of ureter (Primary Dx) Discharge Disposition: Discharge to home or self care from Last 3 Months Surgical History Surgery Date Site/Laterality Comments THYROID SURGERY 11/04/2000 Left TONSILLECTOMY AND ADENOIDECTOMY IMAGE GUIDED DRAINAGE PERITO MELANIE OR RETROPERITONEAL FLUID COLLECTION 11/12/2023 N/A ABSCESS CATHETER INJECTION 11/20/2023 N/A IR PICC LINE PLACEMENT > 5 YEARS 11/26/2023 N/A ABSCESS CATHETER INJECTION 12/04/2023 N/A URETEROSCOPY PROSTATE SURGERY Medical History Medical History Date Comments Atrial fibrillation (HCC) Hypertension Dyslipidemia 11/08/2023 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 Family History Medical History Relation Name Comments Cancer Brother agent orange Brother Heart disease Father Heart disease Mother Relation Name Status Comments Brother Father Mother Social History Tobacco Use Types Packs/Day Years Used Date Smoking Tobacco: Never Smokeless Tobacco: Never Tobacco Cessation:Counseling Given: Not Answered Alcohol Use Standard Drinks/Week Comments Never 0 (1 standard drink = 0.6 oz pur e alcohol) OASIS D0700: Social Isolation Answer Da te Recorded Frequency of experiencing loneliness or isolatio n Never 11/16/[address] [facility] Utilities Answer Date Recorded In the past 12 months has e [employer], gas, oil, or water company threatened to [...] often do you attend chur ch or christian services? More than 4 times per year 11/10/2023 Do you belong to any clubs o r organizations such as cheondoism groups, unions, fraternal or athletic groups, or [...] place to sleep or slept in a residential (including now)? No 06/26/2023 Housing Stability Vital [...] time in the past 12 m [facility], were you homeless or living in a residential (including now)? No 11/10/2023 Personal Safety Answer [...] on file Sexual Orientation Not on file Obstetrics History Last Filed Vital Signs Vital Sign Reading Time Taken Comments Blood Pressure 127/87 03/18/2024 11:38 AM SACK FILLER Pulse 93 03/18/2024 11:38 AM SACK FILLER Temperature 36.2 C (97.1 F) 03/18/2024 11:38 AM SACK FILLER Respiratory Rate 18 03/18/2024 11:38 AM SACK FILLER Oxygen Saturation 93% 03/18/2024 11:38 AM SACK FILLER Inhaled Oxygen Concentration - - Weight 82.8 kg (182 lb 8.7 oz) 03/18/2024 8:17 A M SACK FILLER Height 177.8 cm (5' 10 ) 03/18/2024 8:17 AM SACK FILLER Body Mass Index 26.19 03/18/2024 8:17 AM SACK FILLER Plan of Treatment Health Maintenance Due Date Last Done Comments Depression Screening 1940 Hepatitis B Screening 02/13/1958 Well Visit 65+ 02/13/2005 Influenza Vaccine (Season Ended) 2024 12/03/2022, 11/15/2022, 12/14/2021, Additional history exists Fall Risk Assessment 03/03/2025 03/03/2024, 12/04/19 24 DTaP/Tdap/Td Vaccine (2 - Td or Tdap) 05/26/2028 05/26/2018 Pneumococcal vaccine 65+ Completed 08/07/2020, 05/27 Zoster Vaccine Completed 11/07/2020, 07/25, 02/12/2013 Medical Devices Implanted Type Area Hoop Machine Operator Device Identifier Shelf Expiration Date Model / Serial / Lot [id number] Contour 6fr 26cm Large Inner Lumen Low Profile Bladder Iban Taper Latex Free 180-223 - [id number] Implanted:Qty: 1 on 03/18/2024 by Franco Leigh MD at [facility] [employer] Debbie 11/05/2026 [id number] / / [id number] Procedures Procedure Name Priority Date/Time Associated Diagnosis Comments XR KUB Schedule Routine, Read Routine (OP Routine) 04/07/2024 8:49 AM SACK FILLER Calculus of ureter SURGICAL PATHOLOGY Routine 03/18/2024 11 :49 AM SACK FILLER Calculus of ureter FL FLUOROSCOPY < 1 HOUR IP Routine 03/18/2024 11:00 AM SACK FILLER Calculus of ureter XR ABDOMEN AP 1 VIEW IP Routine 03/18/2024 11:00 AM SACK FILLER Calculus of ureter STONE ANALYSIS Routine 03/18/2024 9:42 AM SACK FILLER ID AN ELECTIVE SUPRAGLOTTIC AIRWAY Routine 03/18/2024 9:31 AM SACK FILLER URETEROSCOPY 03/18/2024 9:09 AM SACK FILLER Calculus of ureter from Last 3 Months Results * XR Kub (04/07/2024 8:49 AM SACK FILLER) Anatomical Region Laterality Modality Body, Abdomen N/A Computed Radiogr aphy 04/09/2024 9:15 AM SACK FILLER Narrative 04/09/2024 9:19 AM SACK FILLER EXAM DESCRIPTION: XR KUB REASON FOR STUDY: [...] Electronically signed by Carmen Quintanilla M.D. AB: AB Report ID: [id number] Reading Location: [id number] Procedure Note Carmen Quintanilla MD - 04/09/2024 [...] Electronically signed by Carmen Quintanilla M.D. AB: AB Report ID: [id number] Reading Location: [id number] Franco Leigh MD IMG XR PROCEDURES Fi nal Result * Surgical pathology (03/18/2024 11:49 AM SACK FILLER) Tissue specimen (specimen) (Calculus/calculi /stone, gross and Chemical Analysis) 03/18/2024 9:42 AM SACK FILLER Narrative PATHOLOGY [facility] - 03/19/2024 11:09 AM SACK FILLER EPIC results best viewed via link to PDF [facility] Department of Pathology [address] [place] [address] Note to Patients: This report may contain [...] Final Report Patient Name: APARNA TOMPKINS Address: [address] [place] [address], [place] [address] Gender: M : 1940 (Age: 84) Service: Surgery Location: [facility] Hospital #: [id number] Patient Type: [facility] Taken: 03/18/2024 Received: 03/18/2024 Accessioned: 03/18/2024 Reported: 03/19/2024 Physician(s):Franco Leigh M.D. Diagnosis: Right ureteral stone, removal (gross only): - Consistent with ureteral stone. - Pending [facility] chemical analysis. Akil Pearson M.D. Report Electronically [...] mm. The specimen is entirely submitted to [facility] for chemical analysis. When the [facility] report has been finalized, it will be available in the laboratory section of [facility]. If [facility] is not available, please call the Department of Pathology at [facility] ([phone]) to obtain a copy of the report. Casa Uriarte R.N., P.A./Elvira Ramírez M.D. REPORT IMAGES AND SCANNED DOCUMENTS, IF INCLUDED, ONLY VIEWABLE IN PDF VERSION OF REPORT The performance characteristics of some immunohistochemical stains, fluorescence in-situ hybridization tests and immunophenotyping by flow cytometry cited in this report (if any) were determined by the Surgical Pathology Department at [facility] as part of an ongoing quality control assistant program and in compliance with federally mandated [...] characteristics determined by the Surgical Pathology Department [facility]. It has not been cleared or approved by the U. S. Food and Drug Administration. Note for decalcified specimens: This assay has not been validated on decalcified tissues. Results should be interpreted with caution given the possibility of false negativity on decalcified specimens Franco Leigh MD LAB PATHOLOGY ORDERA BLES Final Result PATHOLOGY [facility] ([facility]) [address] [place] [address] * [place] Fluoroscopy < 1 Hour (03/18/2024 11:00 AM SACK FILLER) Narrative [facility] - 03/18/2024 11:46 AM SACK FILLER The images from this study are not interpreted by Radiology. Please refer to the physician's procedure / OR operative note. Franco Leigh MD IM FLUOROSCOPY PROC EDURES Final Result [facility] * XR Abdomen 1 View AP (03/18/2024 11:00 AM SACK FILLER) Anatomical Region Laterality Modality Body, Abdomen N/A Radio Fluoroscop y 03/18/2024 3:55 PM SACK FILLER Narrative 03/18/2024 3:57 PM SACK FILLER EXAM DESCRIPTION: XR ABDOMEN AP 1 VIEW [...] Yolanda Benitez M.D. FT: FT Report ID: [id number] Reading Location: [id number] Procedure Note Yolanda Conklin MD - 03/18/2024 EXAM DESCRIPTION: XR ABDOMEN AP 1 VIEW REASON FOR STUDY: kidney stone Right stent placement Fluoro time: .2 min Mgy: 3.6 DAP: .18 TECHNIQUE: Single radiographic view of the abdomen. [...] Yolanda Benitez M.D. FT: FT Report ID: [id number] Reading Location: [id number] Franco Leigh MD IMG XR PROCEDURES Fi nal Result * Stone analysis (03/18/2024 9:42 AM SACK FILLER) Pathologist [facility] Stone analysis Not Reported [facility] Comment:Testing performed by : [facility], [address] [place] [address], [id number] Source, Kid Stone Right Ureter [facility] ([facility]) Comment:Testing performed by : [facility], [address] [place] [address]., [address] Interp, Kid stone analysis See Footnote [facility] ([facility]) Comment: RESULT: 100% Calcium oxalate monohydrate. Testing performed by: [facility], [address] [place] [address], [address] COMMENT See Footnote [facility] ([facility]) Comment: For stones containing calcium oxalate, calcium phosphate, and/or uric acid, a 24 hr urinary supersaturation test may help detect underlying risk factors for this type of stone formation and provide guidance for a stone prevention strategy. ADDITIONAL INFORMATION This test was developed and its performance characteristics determined by [facility] in a manner consistent with CLIA requirements. This test has not been cleared or approved by the U.S. Food and Drug Administration. Test Performed by: [facility] [place] [address] Cut Off Saw Tender Metal: Norman Bautista Ph.D.; CLIA# [id number] Testing performed by: [address], [address] Stone 03/18/2024 9:42 AM SACK FILLER 03/22/2024 2:17 PM SACK FILLER Narrative [facility] - 03/25/2024 11:09 PM SACK FILLER right ureteral stone us Franco Leigh MD LAB URINE ORDERABLES Final Result [facility] ([place]) 1 [facility] [place] [address] [place] [facility] * ID AN ELECTIVE SUPRAGLOTTIC AIRWAY (03/18/2024 9:31 AM SACK FILLER) Narrative Samantha Hutson CRNA - 03/18/2024 9:31 AM SACK FILLER Samantha Hutson CRNA 03/18/2024 9:32 AM Airway Patient location: OR Urgency: elective Indications for airway management: anesthesia Difficult airway: no Staff: Placed by: VENTURE CAPITALIST: Samantha Hutson CRNA Emergent airway documentation: Risks and benefits discussed: yes Consent obtained: yes Consent given by: patient Airway prep: Preoxygenated: yes Patient position: sniffing Mask difficulty assessment: 0 - not attempted Spontaneous ventilation during airway: absent Sedation level during airway: GA Final airway details: Final airway type: supraglottic airway Final supraglottic airway: unique SGA size: 5 Number of attempts: 1 us Alfred Jay MD ANESTHESIA ORDERABLES Sugar l Result from Last 3 Months Insurance [facility] MEDICARE ADVANTAGE [place] [facility] UHC MEDICARE ADVANTAGE Advance Directives For more information, please contact: [phone] Documents on File Type Date Recorded Patient Rehabilitation Tech Expl anation ADVANCE DIRECTIVE 11/17/2023 6:11 PM POWER OF BED AND BREAKFAST INNKEEPER-MEDICAL * LIMITED - No CPR (Latest Code Status on File) Date Activated Date Inactivated Comments 11/08/2023 6:18 PM 11/14/2023 9:56 PM * Full Code Date Activated Date Inactivated Comments 06/26/2023 3:13 AM 06/29/2023 4:04 PM Care Teams Small Arms Artillery Repairer Relationship Specialty Start Date End Date Hallie Urias MD [address] [place] [address] PCP - General Internal Medicine 06/27/23 [place] [address] [place] [address] Consulting Physician Urology 06/29/23
[2024-06-06 13:47] VITALS: BP 158/93; PULSE 81; RESP 18; TEMP 37.1; O2SAT 96
--- NOTE | 2024-06-06 14:07 | ED_ITS ---
HPI - Head Injury General Chief complaint: Head Injury Stated complaint: Tripped-hit head, Time Seen by Provider: 06/06/24 14:02 Source: patient and family Limitations: no limitations History of Present Illness HPI Narrative: 84 YEARS OLD WHITE MALE TRIPPED ON A CURB AND FELL STRUCK HEAD ON THE GROUND. NO LOSS OF CONSCIOUSNESS COMPLAINING OF LEFT FRONTAL HEADACHE AND NECK PAIN. PATIENT DENIES OTHER INJURIES. PATIENT ON XARELTO. Related Data Home Medications ?Medication ?Instructions ?Recorded ?Confirmed ?Last Taken ?Type B.coagulan,subtilis 1 bill. tablet PO 01/29/24 Unknown History cell-inulin 1 gram-vit C 15 mg chew tablet (Culturelle Probiotic-Prebiotic) amino acids cap PO 01/29/24 Unknown History atorvastatin 40 mg tablet 40 mg PO DAILY 01/29/24 Unknown History diltiazem HCl 120 mg 120 mg PO DAILY 01/29/24 Unknown History capsule,extended release 24 hr, controlled nedmfafm-lv-unieg 300 mcg-K 60 1 tablet PO DAILY 01/29/24 Unknown History mcg-lycop 600 mcg-lutein 300 mcg tablet (Centrum Silver Ultra Men's) omega 4-jcg-gie-fish oil 1,000 mg 1 cap PO DAILY 01/29/24 Unknown History (120 mg-180 mg) capsule (Fish Oil) rivaroxaban 20 mg tablet (Xarelto) 20 mg PO DAILY 01/29/24 Unknown History tamsulosin 0.4 mg capsule 0.4 mg PO DAILY 01/29/24 Unknown History Allergies Allergy/AdvReac Type Severity Reaction Status Date / Time naproxen Allergy Severe unknown Verified 06/06/24 13:43 Review of Systems Review of Systems: All systems reviewed & are unremarkable except as noted in HPI and below PMFSH Surgical History Surgical History H/O thyroidectomy left side 11/04/2000 History of tonsillectomy 1950 Family History Family History Mother Patient's mother is , Onset Age: 85 Father Malignant neoplasm of prostate Family history of congestive heart failure, Onset Age: 82 Sibling Family history of malignant neoplasm of urinary bladder Other Family history of cardiovascular disease Social History Social History Smoking status: Former smoker Smoking end date: 02/24/1962 Alcohol intake: current Alcohol use details: maybe once a month Substance use: never Substance use type: does not use Do You Feel Safe in your Home?: Yes Exam Narrative: GENERAL APPEARANCE: WELL-DEVELOPED, WELL-NOURISHED SKIN: NORMAL COLOR HEAD: LEFT FOREHEAD HEMATOMA EYES: CLEAR CONJUNCTIVA ENT: OROPHARYNX NORMAL, EARS NORMAL, NOSE NORMAL NECK: DIFFUSE NECK TENDERNESS CHEST AND RESPIRATORY: AIRWAY PATENT, NO RESPIRATORY DISTRESS, NO ACCESSORY MUSCLE USE HEART: REGULAR RATE/RHYTHM ABDOMEN: SOFT, NONTENDER, NO ORGANOMEGALY, QUIET BOWEL SOUNDS VASCULAR: NORMAL PERIPHERAL PULSES, NORMAL CAPILLARY REFILL. 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 IS NORMAL TESTED, NO GROSS MOTOR DEFICIT Course Vital Signs Vital signs: Vital Signs Temperature 37.1 C 06/06/24 13:47 Pulse Rate 81 06/06/24 13:47 Respiratory Rate 18 06/06/24 13:47 Blood Pressure 158/93 H 06/06/24 13:47 Pulse Oximetry 96 06/06/24 13:47 Oxygen Delivery Room Air 06/06/24 13:47 Temperature 36.6 C 06/06/24 15:24 Pulse Rate 80 06/06/24 15:24 Respiratory Rate 16 06/06/24 15:24 Blood Pressure 146/90 H 06/06/24 15:24 Pulse Oximetry 99 06/06/24 15:24 Oxygen Delivery Room Air 06/06/24 13:47 MDM - Head Injury MDM Narrative Medical decision making narrative: HEAD INJURY AFTER A FALL VITAL SIGNS ARE STABLE DIFFERENTIAL DIAGNOSIS CONTUSION VERSUS INTRA CEREBRAL HEMORRHAGE VERSUS CERVICAL NECK FRACTURE VERSUS SPRAIN/STRAIN CT HEAD WITHOUT CONTRAST SHOWED, no acute abnormality CT CERVICAL SPINE WITHOUT CONTRAST SHOWED no acute abnormality Differential Diagnosis Differential diagnosis: Likely other ( ABOVE) Imaging Data Radiologist's impression: Impressions Head CT 06/06/24 14:25 IMPRESSION: No acute intracranial process. Cervical Spine CT 06/06/24 14:28 IMPRESSION: No acute fracture or traumatic malalignment in the cervical spine. Critical Care Time Critical Care Time Critical Care Time: No Discharge Plan Discharge Clinical Impression: CHI (closed head injury) Patient Disposition: Home Condition: Stable Instructions: Head Injury (ED), Acute Neck Pain (ED) Additional Instructions: RETURN IF SYMPTOMS ARE WORSENING , CALL YOUR FAMILY PHYSICIAN FOR APPOINTMENT, TAKE TYLENOL NEEDED FOR ACHES AND PAIN, CONTINUE HOME MEDICATIONS. Patient Language: Wolof Prescriptions: No Action Xarelto 20 mg tablet 20 mg PO DAILY Rx Instructions: must administer with evening meal diltiazem HCl 120 mg capsule,ext.rel 24h degradable 120 mg PO DAILY tamsulosin 0.4 mg capsule 0.4 mg PO DAILY atorvastatin 40 mg tablet 40 mg PO DAILY Centrum Silver Ultra Men's [phone] mcg tablet 1 tablet PO DAILY omega 5-ukq-zyv-fish oil [Fish Oil] 1,000 (120-180) mg capsule 1 cap PO DAILY Culturelle Probiotic-Prebiotic 1 billion cell- 1 gram-15 mg tablet,chewable PO amino acids Capsule PO Follow-up/Referrals: Millie Maurice MD [Primary Care Provider] -
--- OUTSIDE RECORDS SUMMARY | 2024-06-06 14:21 | XMS_ITS | Clinical Summary ---
Author Organization [facility] Address 1 [place] [address] Care Team Providers Care [employer] Learning Support Teacher Name Role Phone Hallie Urias MD Primary Care Provider [phone] Franco Leigh MD Unavailable [phone] Allergies Active Allergy Reactions Criticality Noted Date [...] Department Care Team Description 04/07/2024 8:30 AM CREW BOAT OPERATOR - 04/07/2024 11:59 PM CREW BOAT OPERATOR Hospital Encounter [facility] Imaging Center 1 [place] [address] Calculus of ureter Discharge Disposition: Discharge to home or self care 03/18/2024 9:45 AM CREW BOAT OPERATOR - 03/18/2024 11:15 AM CREW BOAT OPERATOR Surgery [facility] Operating Room 1 [place] [address] Franco Leigh MD Right ureteroscopy, laser lithotripsy, stone extraction, right stent placement 03/18/2024 9:09 AM CREW BOAT OPERATOR Anesthesia Event [facility] Operating Room 1 [place] [address] Alfred Jay MD 03/18/2024 8:00 AM CREW BOAT OPERATOR - 03/18/2024 11:52 AM CREW BOAT OPERATOR Hospital Encounter [facility] Operating Room 1 [place] [address] Franco Leigh MD Calculus of ureter (Primary [...] experiencing loneliness or isolatio n Never 11/16/2023 [facility] Utilities Answer Date Recorded In the past 12 months has e [employer], gas, oil, or water company threatened to [...] often do you attend chur ch or uatsdin services? More than 4 times per year 11/10/2023 Do you belong to any clubs o r organizations such as hinduism groups, unions, fraternal or athletic groups, or [...] any time in the past 12 m [facility], were you homeless or living in [...] Comments Blood Pressure 127/87 03/18/2024 11:38 AM CREW BOAT OPERATOR Pulse 93 03/18/2024 11:38 AM CREW BOAT OPERATOR Temperature 36.2 C (97.1 F) 03/18/2024 11:38 AM CREW BOAT OPERATOR Respiratory Rate 18 03/18/2024 11:38 AM CREW BOAT OPERATOR Oxygen Saturation 93% 03/18/2024 11:38 AM CREW BOAT OPERATOR Inhaled Oxygen Concentration - - Weight 82.8 kg (182 lb 8.7 oz) 03/18/2024 8:17 A M CREW BOAT OPERATOR Height 177.8 cm (5' 10 ) 03/18/2024 8:17 AM CREW BOAT OPERATOR Body Mass Index 26.19 03/18/2024 8:17 AM CREW BOAT OPERATOR Plan of Treatment Health Maintenance Due Date [...] 07/25, 02/12/2013 Medical Devices Implanted Type Area Sales Recruitment Specialist Device Identifier Shelf Expiration Date Model / Serial / Lot [employer] Medical Chitosan Contour 6fr 26cm Large Inner Lumen Low Profile Bladder Iban Taper Latex Free 180-223 - [id number] Implanted:Qty: 1 on 03/18/2024 by Franco Leigh MD at [facility] [employer] Debbie 11/05/2026 [id number] / / [id number] Procedures Procedure Name Priority Date/Time Associated Diagnosis Comments XR KUB Schedule Routine, Read Routine (OP Routine) 04/07/2024 8:49 AM CREW BOAT OPERATOR Calculus of ureter SURGICAL PATHOLOGY Routine 03/18/2024 11 :49 AM CREW BOAT OPERATOR Calculus of ureter FL FLUOROSCOPY < 1 HOUR IP Routine 03/18/2024 11:00 AM CREW BOAT OPERATOR Calculus of ureter XR ABDOMEN AP 1 VIEW IP Routine 03/18/2024 11:00 AM CREW BOAT OPERATOR Calculus of ureter STONE ANALYSIS Routine 03/18/2024 9:42 AM CREW BOAT OPERATOR WI AN ELECTIVE SUPRAGLOTTIC AIRWAY Routine 03/18/2024 9:31 AM CREW BOAT OPERATOR URETEROSCOPY 03/18/2024 9:09 AM CREW BOAT OPERATOR Calculus of ureter from Last 3 Months Results * XR Kub (04/07/2024 8:49 AM CREW BOAT OPERATOR) Anatomical Region Laterality Modality Body, Abdomen N/A Computed Radiogr aphy 04/09/2024 9:15 AM CREW BOAT OPERATOR Narrative 04/09/2024 9:19 AM CREW BOAT OPERATOR EXAM DESCRIPTION: XR KUB REASON FOR STUDY: [...] Carmen Quintanilla M.D. AB: AB Report ID: [id number] Reading Location: [id number] Procedure Note Carmen Quintanilla MD - 04/09/2024 [...] Carmen Quintanilla M.D. AB: AB Report ID: [id number] Reading Location: [id number] Franco Leigh MD IMG XR PROCEDURES Fi nal Result * Surgical pathology (03/18/2024 11:49 AM CREW BOAT OPERATOR) Tissue specimen (specimen) (Calculus/calculi /stone, gross and Chemical Analysis) 03/18/2024 9:42 AM CREW BOAT OPERATOR Narrative [facility]OLOGY [facility] - 03/19/2024 11:09 AM CREW BOAT OPERATOR EPIC results best viewed via link to PDF [facility] Department of Pathology [address] [place] [address] Note to Patients: This report may contain [...] Final Report Patient Name: APARNA TOMPKINS Address: [address] [place] [address], [place] [address] Gender: M : 1940 (Age: 84) Service: Surgery Location: [facility] Hospital #: [id number] Patient Type: [facility] Taken: 03/18/2024 Received: 03/18/2024 Accessioned: 03/18/2024 Reported: 03/19/2024 Physician(s):Franco Leigh M.D. Diagnosis: Right ureteral stone, removal (gross only): - Consistent with ureteral stone. - Pending [facility] chemical analysis. Akil Pearson M.D. Report Electronically [...] mm. The specimen is entirely submitted to [facility] for chemical analysis. When the [facility] report has been finalized, it will be available in the laboratory section of [facility]. If [facility] is not available, please call the Department of Pathology at [facility] ([phone]) to obtain a copy of the report. Casa Uriarte R.N., P.A./Elvira Ramírez M.D. REPORT IMAGES AND SCANNED DOCUMENTS, IF INCLUDED, ONLY VIEWABLE IN PDF VERSION OF REPORT The performance characteristics of some immunohistochemical stains, fluorescence in-situ hybridization tests and immunophenotyping by flow cytometry cited in this report (if any) were determined by the Surgical Pathology Department at [facility] as part of an ongoing quality review trainer program and in compliance with federally mandated [...] characteristics determined by the Surgical Pathology Department [facility]. It has not been cleared or approved by the U. S. Food and Drug Administration. Note for decalcified specimens: This assay has not been validated on decalcified tissues. Results should be interpreted with caution given the possibility of false negativity on decalcified specimens Franco Leigh MD LAB PATHOLOGY ORDERA BLES Final Result PATHOLOGY [facility] ([facility]) 1 [place] [address] * [place] Fluoroscopy < 1 Hour (03/18/2024 11:00 AM CREW BOAT OPERATOR) Narrative [facility] - 03/18/2024 11:46 AM CREW BOAT OPERATOR The images from this study are not interpreted by Radiology. Please refer to the physician's procedure / OR operative note. Franco Leigh MD IM FLUOROSCOPY PROC EDURES Final Result [facility] * XR Abdomen 1 View AP (03/18/2024 11:00 AM CREW BOAT OPERATOR) Anatomical Region Laterality Modality Body, Abdomen N/A Radio Fluoroscop y 03/18/2024 3:55 PM CREW BOAT OPERATOR Narrative 03/18/2024 3:57 PM CREW BOAT OPERATOR EXAM DESCRIPTION: XR ABDOMEN AP 1 VIEW [...] Yolanda Benitez M.D. FT: FT Report ID: [id number] Reading Location: [id number] Procedure Note Yolanda Conklin MD - 03/18/2024 [...] Yolanda Benitez M.D. FT: FT Report ID: [id number] Reading Location: [id number] Franco Leigh MD IMG XR PROCEDURES Fi nal Result * Stone analysis (03/18/2024 9:42 AM CREW BOAT OPERATOR) Pathologist [facility] Stone analysis Not Reported [facility] Lab Comment:Testing performed by : [facility], [address] [place] [address], [address] Source, Kid Stone Right Ureter [facility] ([facility]) Comment:Testing performed by : [facility], [address] [place] [address]., [address] Interp, Kid stone analysis See Footnote [facility] ([place]) Comment: RESULT: 100% Calcium oxalate monohydrate. Testing performed by: [facility], [address] [place] [address], [address] COMMENT See Footnote [facility] ([place]) Comment: For stones containing calcium oxalate, calcium phosphate, and/or uric acid, a 24 hr urinary supersaturation test may help detect underlying risk factors for this type of stone formation and provide guidance for a stone prevention strategy. ADDITIONAL INFORMATION This test was developed and its performance characteristics determined by [facility] in a manner consistent with CLIA requirements. This test has not been cleared or approved by the U.S. Food and Drug Administration. Test Performed by: [facility] [place] [address] Chimney Builder Helper: Norman Bautista Ph.D.; CLIA# [id number] Testing performed by: [address], [address] Stone 03/18/2024 9:42 AM CREW BOAT OPERATOR 03/22/2024 2:17 PM CREW BOAT OPERATOR Narrative [facility] ([place]) - 03/25/2024 11:09 PM CREW BOAT OPERATOR right ureteral stone us Franco Leigh MD LAB URINE ORDERABLES Final Result [facility] ([place]) 1 [facility] Department [place] [address] [facility] * [place] AN ELECTIVE SUPRAGLOTTIC AIRWAY (03/18/2024 9:31 AM CREW BOAT OPERATOR) Narrative Samantha Hutson CRNA - 03/18/2024 9:31 AM CREW BOAT OPERATOR Samantha Hutson CRNA 03/18/2024 9:32 AM Airway Patient location: OR Urgency: elective Indications for airway management: anesthesia Difficult airway: no Staff: Placed by: SALES AND MARKETING VICE PRESIDENT: Samantha Hutson CRNA Emergent airway documentation: Risks [...] l Result from Last 3 Months Insurance [facility] MEDICARE ADVANTAGE HEALTH SYSTEM [facility] MEDIC[facility] Address: [address] [address] [place] [address] [place] [facility] UHC MEDICARE ADVANTAGE [facility]ALTH [facility] Address: [address] [address] [place] [address] Advance Directives For more information, please contact: [phone] Documents on File Type Date Recorded Patient Yard Laborer Expl anation ADVANCE DIRECTIVE 11/17/2023 6:11 PM POWER OF NETWORK STRATEGIST-MEDICAL * LIMITED - No CPR (Latest Code Status on File) Date Activated Date Inactivated Comments 11/08/2023 6:18 PM 11/14/2023 9:56 PM * Full Code Date Activated Date Inactivated Comments 06/26/2023 3:13 AM 06/29/2023 4:04 PM Care Teams High School Learning Support Teacher Relationship Specialty Start Date End Date Hallie Urias MD [address] [place] [address] PCP - General Internal Medicine 06/27/23 [place] [address] [place] [address] Consulting Physician Urology 06/29/23
--- OUTSIDE RECORDS SUMMARY | 2024-06-06 14:21 | XMS_ITS | Referral Summary ---
Author Organization [facility] Address 1 [place] [address] Care Team Providers Care College Football Coach Name Role Phone Hallie Urias MD Primary Care Provider [phone] Franco Leigh MD Unavailable [phone] Encounters Date Type Department Care Team Description 04/07/2024 8:30 AM WINDSHIELD INSTALLER - 04/07/2024 11:59 PM WINDSHIELD INSTALLER Hospital Encounter [facility] Imaging Center 1 [place] [address] Calculus of ureter Discharge Disposition: Discharge to home or self care 03/18/2024 9:45 AM WINDSHIELD INSTALLER - 03/18/2024 11:15 AM WINDSHIELD INSTALLER Surgery [facility] Operating Room [address] [place] [address] Franco Leigh MD Right ureteroscopy, laser lithotripsy, stone extraction, right stent placement 03/18/2024 9:09 AM WINDSHIELD INSTALLER Anesthesia Event [facility] Operating Room [address] [place] [address] Alfred Jay MD 03/18/2024 8:00 AM WINDSHIELD INSTALLER - 03/18/2024 11:52 AM WINDSHIELD INSTALLER Hospital Encounter [facility] Operating Room [address] [place] [address] Franco Leigh MD Calculus of ureter (Primary [...] often do you attend chur ch or mandaen services? More than 4 times per year 11/10/2023 Do you belong to any clubs o r organizations such as orthodoxy groups, unions, fraternal or athletic groups, or [...] place to sleep or slept in a assisted (including now)? No 06/26/2023 Housing Stability Vital Sign Answer Curt e Recorded In the last 12 months, was t here a time when you were not able to pay the mortgage or rent on time? No 11/10/2023 In the past 12 months, how m any times have you moved where you were living? 0 11/10/2023 At any time in the past 12 m [facility], were you homeless or living in a assisted (including now)? No 11/10/2023 Personal Safety Answer [...] Comments Blood Pressure 127/87 03/18/2024 11:38 AM WINDSHIELD INSTALLER Pulse 93 03/18/2024 11:38 AM WINDSHIELD INSTALLER Temperature 36.2 C (97.1 F) 03/18/2024 11:38 AM WINDSHIELD INSTALLER Respiratory Rate 18 03/18/2024 11:38 AM WINDSHIELD INSTALLER Oxygen Saturation 93% 03/18/2024 11:38 AM WINDSHIELD INSTALLER Inhaled Oxygen Concentration - - Weight 82.8 kg (182 lb 8.7 oz) 03/18/2024 8:17 A M WINDSHIELD INSTALLER Height 177.8 cm (5' 10 ) 03/18/2024 8:17 AM WINDSHIELD INSTALLER Body Mass Index 26.19 03/18/2024 8:17 AM WINDSHIELD INSTALLER Plan of Treatment Not on file Medical Devices Implanted Type Area Refinery Operator Helper Cracking Unit Device Identifier Shelf Expiration Date Model / Serial / Lot [employer] Debbie Contour 6fr 26cm Large Inner Lumen Low Profile Bladder Iban Taper Latex Free 180-223 - [id number] Implanted:Qty: 1 on 03/18/2024 by Franco Leigh MD at [facility] [employer] [facility] 11/05/2026 [id number] / / [id number] Procedures Procedure Name Priority Date/Time Associated Diagnosis Comments XR KUB Schedule Routine, Read Routine (OP Routine) 04/07/2024 8:49 AM WINDSHIELD INSTALLER Calculus of ureter SURGICAL PATHOLOGY Routine 03/18/2024 11 :49 AM WINDSHIELD INSTALLER Calculus of ureter FL FLUOROSCOPY < 1 HOUR IP Routine 03/18/2024 11:00 AM WINDSHIELD INSTALLER Calculus of ureter XR ABDOMEN AP 1 VIEW IP Routine 03/18/2024 11:00 AM WINDSHIELD INSTALLER Calculus of ureter STONE ANALYSIS Routine 03/18/2024 9:42 AM WINDSHIELD INSTALLER SC AN ELECTIVE SUPRAGLOTTIC AIRWAY Routine 03/18/2024 9:31 AM WINDSHIELD INSTALLER URETEROSCOPY 03/18/2024 9:09 AM WINDSHIELD INSTALLER Calculus of ureter from Last 3 Months Results * XR Kub (04/07/2024 8:49 AM WINDSHIELD INSTALLER) Anatomical Region Laterality Modality Body, Abdomen N/A Computed Radiogr aphy 04/09/2024 9:15 AM WINDSHIELD INSTALLER Narrative 04/09/2024 9:19 AM WINDSHIELD INSTALLER EXAM DESCRIPTION: XR KUB REASON FOR STUDY: [...] by Carmen Quintanilla M.D. AB: Report ID: [id number] Reading Location: [id number] Procedure Note Carmen Quintanilla MD - 04/09/2024 [...] by Carmen Quintanilla M.D. AB: Report ID: [id number] Reading Location: [id number] Franco Leigh MD IMG XR PROCEDURES Fi nal Result * Surgical pathology (03/18/2024 11:49 AM WINDSHIELD INSTALLER) Tissue specimen (specimen) (Calculus/calculi /stone, gross and Chemical Analysis) 03/18/2024 9:42 AM WINDSHIELD INSTALLER Narrative PATHOLOGY [facility] ([place]) - 03/19/2024 11:09 AM WINDSHIELD INSTALLER EPIC results best viewed via link to PDF [facility] Department of Pathology [address] [place], [place] [id number] Note to Patients: This report may contain [...] Final Report Patient Name: APARNA TOMPKINS Address: [address] [place] [address] [address] , [place] [address] Gender: M : 1940 (Age: 84) Service: Surgery Location: [facility] Hospital #: [id number] Patient Type: [facility] Taken: 03/18/2024 Received: 03/18/2024 Accessioned: 03/18/2024 Reported: 03/19/2024 Physician(s):Franco Leigh M.D. Diagnosis: Right ureteral stone, removal (gross only): - Consistent with ureteral stone. - Pending [facility] chemical analysis. Akil Pearson M.D. Report Electronically [...] The specimen is entirely submitted to [facility] for chemical analysis. When the [facility] report has been finalized, it will be available in the laboratory section of [facility]. If [facility] is not available, please call the Department of Pathology at [facility] ([phone]) to obtain a copy of the report. Casa Uriarte R.N., P.A./Elvira Ramírez M.D. REPORT IMAGES AND SCANNED DOCUMENTS, IF INCLUDED, ONLY VIEWABLE IN PDF VERSION OF REPORT The performance characteristics of some immunohistochemical stains, fluorescence in-situ hybridization tests and immunophenotyping by flow cytometry cited in this report (if any) were determined by the Surgical Pathology Department at [facility] as part of an ongoing quality measurement specialist program and in compliance with federally mandated [...] characteristics determined by the Surgical Pathology Department [facility]. It has not been cleared or approved by the U. S. Food and Drug Administration. Note for decalcified specimens: This assay has not been validated on decalcified tissues. Results should be interpreted with caution given the possibility of false negativity on decalcified specimens Franco Leigh MD LAB PATHOLOGY ORDERA BLES Final Result Performing Organization Address [facility] Co de Phone Number PATHOLOGY [facility] ([place]) 1 [place] [address] * [place] Fluoroscopy < 1 Hour (03/18/2024 11:00 AM WINDSHIELD INSTALLER) Narrative [facility] - 03/18/2024 11:46 AM WINDSHIELD INSTALLER The images from this study are not interpreted by Radiology. Please refer to the physician's procedure / OR operative note. Franco Leigh MD IMG FLUOROSCOPY PROC EDURES Final Result Performing Organization Address [facility] de Phone Number [facility] * XR Abdomen 1 View AP (03/18/2024 11:00 AM WINDSHIELD INSTALLER) Anatomical Region Laterality Modality Body, Abdomen N/A Radio Fluoroscop y 03/18/2024 3:55 PM WINDSHIELD INSTALLER Narrative 03/18/2024 3:57 PM WINDSHIELD INSTALLER EXAM DESCRIPTION: XR ABDOMEN AP 1 VIEW [...] Yolanda Benitez M.D. FT: FT Report ID: [id number] Reading Location: [id number] Procedure Note Yolanda Conklin MD - 03/18/2024 [...] Yolanda Benitez M.D. FT: FT Report ID: [id number] Reading Location: [id number] Franco Leigh MD IMG XR PROCEDURES Fi nal Result * Stone analysis (03/18/2024 9:42 AM WINDSHIELD INSTALLER) Pathologist [facility] Stone analysis Not Reported [facility] Comment:Testing performed by : [facility], [address] [place] [address]., [id number] Source, Kid Stone Right Ureter [facility] ([place]) Comment:Testing performed by : [facility], [address] [place] [address], [place]., [address] Interp, Kid stone analysis See Footnote [facility] ([place]) Comment: RESULT: 100% Calcium oxalate monohydrate. Testing performed by: [address] [address] COMMENT See Footnote [facility] ([place]) Comment: For stones containing calcium oxalate, calcium phosphate, and/or uric acid, a 24 hr urinary supersaturation test may help detect underlying risk factors for this type of stone formation and provide guidance for a stone prevention strategy. ADDITIONAL INFORMATION This test was developed and its performance characteristics determined by [facility] in a manner consistent with CLIA requirements. This test has not been cleared or approved by the U.S. Food and Drug Administration. Test Performed by: [facility] - [facility] [address] [place] [address] Carpenter'S Helper: Norman Bautista Ph.D.; CLIA# [id number] Testing performed by: [facility], [address] [place] [address], [address] Stone 03/18/2024 9:42 AM WINDSHIELD INSTALLER 03/22/2024 2:17 PM WINDSHIELD INSTALLER Narrative [facility] ([place]) - 03/25/2024 11:09 PM WINDSHIELD INSTALLER right ureteral stone Franco Leigh MD LAB URINE ORDERABLES Final Result Performing Organization Address City/State/[facility] Co de Phone Number [facility] ([place]) 1 [facility] Department [place] [address] [facility] * SC AN ELECTIVE SUPRAGLOTTIC AIRWAY (03/18/2024 9:31 AM WINDSHIELD INSTALLER) Narrative Samantha Hutson CRNA - 03/18/2024 9:31 AM WINDSHIELD INSTALLER Samantha Hutson CRNA 03/18/2024 9:32 AM Airway Patient location: OR Urgency: elective Indications for airway management: anesthesia Difficult airway: no Staff: Placed by: PARAPROFESSIONAL AIDE TEACHER: Samantha Hutson CRNA Emergent airway documentation: Risks [...] [email or web address] Result from Last 3 Months Insurance [place] [facility] [place] [facility] [id number] MEDIC[facility] ADVANTAGE Advance Directives For more information, please contact: [phone] Documents on File Type Date Recorded Patient Protein Specialist Expl anation ADVANCE DIRECTIVE 11/17/2023 6:11 PM POWER OF CANE FURNITURE MAKER-MEDICAL * LIMITED - No CPR (Latest Code Status on File) Date Activated Date Inactivated Comments 11/08/2023 6:18 PM 11/14/2023 9:56 PM * Full Code Date Activated Date Inactivated Comments 06/26/2023 3:13 AM 06/29/2023 4:04 PM Care Teams College Football Coach Relationship Specialty Start Date End Date Hallie Urias MD [address] [place] [address] PCP - General Internal Medicine 06/27/23 [place] [address] [place] [address] Consulting Physician Urology 06/29/23
--- NOTE | 2024-06-06 15:23 | PC.NURSE ---
Cervical collar removed, pt denies any c/o pain. Neuro checks within normal limit
[2024-06-06 15:24] VITALS: BP 146/90; PULSE 80; RESP 16; TEMP 36.6; O2SAT 99
== END 2024-06-06 15:34 | disposition home or self-care (01) ==
PROVIDERS: Emergency Provider Emergency Medicine; PCP Family Medicine
DX: S00.83XA Contusion of other part of head, initial encounter (principal); E89.0 Postprocedural hypothyroidism; Z87.891 Personal history of nicotine dependence; W10.1XXA Fall (on)(from) sidewalk curb, initial encounter
CPT/HCPCS: 70450; 72125; 99284; L0140